=== PATIENT | female | born 1985 | race African-American/Black ===

== ENCOUNTER 2018-07-16 11:24 | Emergency (ER) | payer OTHER ==
[~2018-07-16] VITALS: Ht 165.1 cm; Wt 84.0 kg
[2018-07-16 12:00] VITALS: BP 158/92
== END 2018-07-16 12:42 | disposition home or self-care (01) ==
LOC: ER 11:24
DX: I10 Essential (primary) hypertension (principal); F31.9 Bipolar disorder, unspecified; J20.9 Acute bronchitis, unspecified; J45.909 Unspecified asthma, uncomplicated; F17.200 Nicotine dependence, unspecified, uncomplicated
CPT/HCPCS: 99283

== ENCOUNTER 2018-11-20 16:34 | Emergency (ER) | payer OTHER ==
[~2018-11-20] VITALS: Ht 165.1 cm; Wt 85.0 kg
[2018-11-20] MEDS ORDERED: SODIUM CHLORIDE 0.9% 1,000 ML IV ONE (21:52)
[2018-11-20] MEDS ORDERED: MORPHINE SULFATE 4 MG/ML CPJ (NOT FOR IM USE) IV STA (21:52)
[2018-11-20] MEDS ORDERED: ONDANSETRON HCL 4MG/2ML INJ IV STA (21:52)
[2018-11-20] MEDS ORDERED: LIDOCAINE 1%/EPI 1:100,000 10 ML VIAL IJ ONE (22:15)
[2018-11-20 22:44] LABS: BASOPHILS % 1.2 % (0.0-2.0); EOSINOPHILS % 2.2 % (0.0-5.0); HEMATOCRIT. 36.7 % (36.0-48.0); HEMOGLOBIN. 12.2 g/dL (12.0-16.0); LYMPHOCYTES % 28.9 % (20.0-50.0); MEAN CORPUSCULAR HEMOGLOBIN 29.9 pg (28.0-32.0); MEAN PLATELET VOLUME 8.7 fl (7.4-10.4); MONOCYTES % 4.9 % (2.0-8.0); NEUTROPHILS % 62.8 % (40.0-76.0); PLATELET 253 x1000/uL (130-400); RED BLOOD CELL COUNT 4.08 mill/uL (4.2-5.4); RED CELL DISTRIBUTION WIDTH 12.9 % (11.6-14.6)
[2018-11-20 22:46] LABS: CHLORIDE 109 mEq/L (98-107)
[2018-11-20 22:49] LABS: INR 1.1; PROTHROMBIN TIME 10.7 sec (9.1-11.1)
[2018-11-20] MEDS ORDERED: LIDOCAINE HCL/EPINEPHRINE 1%-EPI 1:100,000 20 ML VIAL IJ NR (23:06)
[2018-11-21] MEDS ORDERED: HYDROCODONE/ACETAMINOPHEN 5/325MG TABLET PO ONE (01:00)
[2018-11-21 01:06] VITALS: BP 180/99
[2018-11-21] MEDS ORDERED: CEFAZOLIN 1000MG PREMIX 50 ML IV ONE (01:15)
== END 2018-11-21 02:25 | disposition home or self-care (01) ==
LOC: ER 16:34
DX: S01.111A Laceration without foreign body of right eyelid and periocular area, initial encounter (principal); S09.8XXA Other specified injuries of head, initial encounter; I10 Essential (primary) hypertension; J45.909 Unspecified asthma, uncomplicated; F20.9 Schizophrenia, unspecified; Z59.0 Homelessness; W01.0XXA Fall on same level from slipping, tripping and stumbling without subsequent striking against object, initial encounter; Y93.89 Activity, other specified; Y92.89 Other specified places as the place of occurrence of the external cause
CPT/HCPCS: 12011; 36415; 80053; 85025; 85610; 96374; 96375; 99283; J2270; J2405; J3490; J7030; Z7610

== ENCOUNTER 2019-01-04 17:13 | Emergency (ER) | payer OTHER ==
[~2019-01-04] VITALS: Ht 167.6 cm; Wt 89.7 kg
[2019-01-04] MEDS ORDERED: IBUPROFEN 600MG TABLET PO ONE (18:45)
[2019-01-04] MEDS ORDERED: CLINDAMYCIN HCL 150MG CAPSULE PO SCH (19:30)
[2019-01-04 19:37] VITALS: BP 132/85
== END 2019-01-04 19:38 | disposition home or self-care (01) ==
LOC: ER 17:13
DX: K08.89 Other specified disorders of teeth and supporting structures (principal); Z48.02 Encounter for removal of sutures; J45.909 Unspecified asthma, uncomplicated; F31.9 Bipolar disorder, unspecified; F20.9 Schizophrenia, unspecified; F17.210 Nicotine dependence, cigarettes, uncomplicated
CPT/HCPCS: 99283

== ENCOUNTER 2021-07-25 10:04 | Emergency (ER) | payer OTHER ==
[~2021-07-25] VITALS: Ht 175.3 cm; Wt 100.0 kg
[2021-07-25 10:13] VITALS: BP 138/83
[2021-07-25] MEDS ORDERED: SODIUM CHLORIDE 0.9% 1,000 ML IV ONE (10:30)
[2021-07-25 10:52] LABS: BASOPHILS % 0.6 % (0.0-2.0); EOSINOPHILS % 0.4 % (0.0-5.0); HEMATOCRIT. 34.9 % (36.0-48.0); HEMOGLOBIN. 11.7 g/dL (12.0-16.0); LYMPHOCYTES % 10.9 % (20.0-50.0); MEAN CORPUSCULAR HEMOGLOBIN 30.8 pg (28.0-32.0); MEAN CORPUSCULAR VOLUME 91.6 fL (81.0-99.0); MEAN PLATELET VOLUME 8.1 fl (7.4-10.4); MONOCYTES % 7.7 % (2.0-8.0); NEUTROPHILS % 80.4 % (40.0-76.0); PLATELET 391 x1000/uL (130-400); RED BLOOD CELL COUNT 3.81 mill/uL (4.2-5.4)
[2021-07-25 10:59] LABS: CHLORIDE 99 mEq/L (98-107)
[2021-07-25 11:18] LABS: HCG SCREEN NEGATIVE
[2021-07-25 11:25] LABS: CLARITY URINE CLOUDY (CLEAR); COLOR URINE DARK YELLOW (YELLOW); KETONES URINE TRACE (NEGATIVE); LEUKOCYTE ESTERASE URINE 1+ (NEGATIVE); NITRITE URINE POSITIVE (NEGATIVE); OCCULT BLOOD URINE 3+ (NEGATIVE); PH URINE 5.5 (4.5-8.0); PROTEIN URINE 2+ (NEGATIVE); SPECIFIC GRAVITY URINE 1.029 (1.005-1.030)
[2021-07-25 12:12] LABS: *BARBITURATES SCREEN URINE NEGATIVE (NEGATIVE)
[2021-07-25 12:13] LABS: *BENZODIAZEPINES SCREEN URINE NEGATIVE (NEGATIVE); *COCAINE SCREEN URINE NEGATIVE (NEGATIVE); OPIATES URINE SCREEN NEGATIVE (NEGATIVE)
[2021-07-25 12:16] LABS: METHADONE URINE SCREEN NEGATIVE (NEGATIVE); PHENCYCLIDINE URINE SCREEN NEGATIVE (NEGATIVE)
[2021-07-25] MEDS ORDERED: CEFTRIAXONE 1 G PREMIX 50 ML IV ONE (12:45)
[2021-07-25 12:56] LABS: *AMPHETAMINES SCREEN URINE PRESUMTIVE POSITIVE (NEGATIVE)
[2021-07-25 12:57] LABS: CANNABINOID URINE SCREEN PRESUMTIVE POSITIVE (NEGATIVE)
[2021-07-25] MEDS ORDERED: CEPH250C2 MT (14:26)
== END 2021-07-25 15:22 | disposition home or self-care (01) ==
LOC: ER 10:13
DX: J06.9 Acute upper respiratory infection, unspecified (principal); Z20.822 Contact with and (suspected) exposure to COVID-19; N39.0 Urinary tract infection, site not specified; J45.909 Unspecified asthma, uncomplicated
CPT/HCPCS: 36415; 71045; 80053; 80305; 81003; 81025; 83605; 84145; 84703; 85025; 87426; 96361; 96365; 99284; J0696; J7030

== ENCOUNTER 2023-11-21 10:05 | Emergency (ER) | payer MEDICAID, OTHER ==
[~2023-11-21] VITALS: Ht 165.1 cm; Wt 91.0 kg
[~2023-11-21 10:05] MED LIST: CEPH250C2 MT
[2023-11-21 10:15] VITALS: BP 173/102; PULSE 100; RESP 18; O2SAT 100
[2023-11-21 11:05] LABS: EOSINOPHILS % 1.2 % (0.0-5.0); HEMATOCRIT. 42.9 % (36.0-48.0); HEMOGLOBIN. 13.6 g/dL (12.0-16.0); LYMPHOCYTES % 21.4 % (20.0-50.0); MEAN CORPUSCULAR HEMOGLOBIN 29.9 pg (28.0-32.0); MEAN CORPUSCULAR HGB CONC 31.8 g/dL (31.0-37.0); MEAN CORPUSCULAR VOLUME 94.3 fL (81.0-99.0); MEAN PLATELET VOLUME 9.5 fl (7.4-10.4); MONOCYTES % 6.4 % (2.0-8.0); PLATELET 263 x1000/uL (130-400); RED BLOOD CELL COUNT 4.55 mill/uL (4.2-5.4); RED CELL DISTRIBUTION WIDTH 13.9 % (11.6-14.6); WHITE BLOOD COUNT 9.1 x1000/uL (4.5-11.0)
[2023-11-21 11:26] LABS: ALANINE AMINOTRANSFERASE 22 IU/L (10-49); ALBUMIN 4.9 g/dL (3.2-4.8); ASPARTATE AMINOTRANSFERASE 28 IU/L (<34); BILIRUBIN TOTAL 0.9 mg/dL (0.1-1.0); CALCIUM 9.4 mg/dL (8.7-10.4); CARBON DIOXIDE 24 mEq/L (21-32); CHLORIDE 107 mEq/L (98-107); GLUCOSE 112 mg/dL (70-105); POTASSIUM 4.4 mEq/L (3.5-5.1); PROTEIN TOTAL 8.5 g/dL (6.0-8.3); SODIUM 138 mEq/L (136-145); UREA NITROGEN BLOOD 11 mg/dL (9-23)
[2023-11-21 12:04] LABS: HCG SCREEN NEGATIVE
[2023-11-21 16:15] VITALS: TEMP 98.3
[2023-11-21] MEDS: ACETAMINOPHEN 325MG TABLET PO ONE (16:15)
== END 2023-11-21 16:43 | disposition home or self-care (01) ==
LOC: ER 10:05
DX: K80.20 Calculus of gallbladder without cholecystitis without obstruction (principal); I10 Essential (primary) hypertension; J45.909 Unspecified asthma, uncomplicated; Z86.59 Personal history of other mental and behavioral disorders
CPT/HCPCS: 36415; 76705; 80053; 84703; 85025; 99284

== ENCOUNTER 2025-08-04 18:50 | Inpatient (IN) | payer MEDICAID, OTHER ==
[~2025-08-04] VITALS: Ht 160 cm; Wt 106.6 kg
[2025-08-04] MEDS: KETOROLAC 15MG/ML VIAL IV ONE (19:31)
[2025-08-04] MEDS: ACETAMINOPHEN 325MG TABLET PO ONE (19:41)
[2025-08-04 20:07] LABS: BASOPHILS % 0.4 % (0.0-2.0); EOSINOPHILS % 0.3 % (0.0-5.0); HEMATOCRIT. 41.9 % (36.0-48.0); HEMOGLOBIN. 13.5 g/dL (12.0-16.0); LYMPHOCYTES % 4.6 % (20.0-50.0); MEAN PLATELET VOLUME 8.7 fl (7.4-10.4); MONOCYTES % 6.0 % (2.0-8.0); NEUTROPHILS % 88.7 % (40.0-76.0); PLATELET 328 x1000/uL (130-400); RED BLOOD CELL COUNT 4.59 mill/uL (4.2-5.4); RED CELL DISTRIBUTION WIDTH 13.8 % (11.6-14.6)
[2025-08-04 20:26] LABS: CREATININE 0.9 mg/dL (0.6-1.0); UREA NITROGEN BLOOD 9 mg/dL (9-23)
[2025-08-04 20:28] LABS: ASPARTATE AMINOTRANSFERASE 28 IU/L (<34); BILIRUBIN DIRECT 0.5 mg/dL (<=3.0); BILIRUBIN TOTAL 1.1 mg/dL (0.1-1.0); PROTEIN TOTAL 7.4 g/dL (6.0-8.3)
[2025-08-04] MEDS: IPRATROPIUM BROMIDE (0.02%) 0.5MG/2.5ML NEB HHN ONE (20:45)
[2025-08-04] MEDS: ALBUTEROL (0.083%) 2.5MG/3ML NEB HHN ONE (20:45)
[2025-08-04] MEDS ORDERED: ALBUTEROL (0.083%) 2.5MG/3ML NEB ONE (20:47)
[2025-08-04] MEDS ORDERED: IPRATROPIUM BROMIDE (0.02%) 0.5MG/2.5ML NEB ONE (20:47)
[2025-08-04 20:50] VITALS: PULSE 119; RESP 24; O2SAT 94
[2025-08-04 21:09] LABS: INFLUENZA TYPE A Presumptive Negative (Pres. Neg.); INFLUENZA TYPE B Presumptive Negative (Pres. Neg.)
[2025-08-04 21:10] LABS: RESPIRATORY SYNCYTIAL VIRUS Not Detected (Not Detectd)
[2025-08-04 21:34] LABS: TROPONIN I HIGH SENSITIVITY 75 ng/L (3.0-34)
[2025-08-04 22:54] LABS: TROPONIN I HIGH SENSITIVITY 76 ng/L (3.0-34)
[2025-08-04] MEDS: FUROSEMIDE 40MG/4ML VIAL IVP ONE (23:08)
[2025-08-04] MEDS: ASPIRIN 81MG TABLET PO ONE (23:09)
[2025-08-05 00:52] VITALS: BP 181/117; PULSE 122; RESP 25; TEMP 37.1408
[2025-08-05] MEDS ORDERED: AMLODIPINE 10MG TABLET PO NR (02:15)
[2025-08-05] MEDS: METOPROLOL TARTRATE 50MG TABLET PO SCH (02:23)
[2025-08-05] MEDS: ASPIRIN 81MG TABLET PO SCH (02:24)
[2025-08-05] MEDS: ACETAMINOPHEN 325MG TABLET PO PRN (06:38)
[2025-08-05 08:00] VITALS: BP 140/101; PULSE 112; RESP 22; TEMP 36.6; O2SAT 98
[2025-08-05] MEDS: LOSARTAN 50 MG TABLET PO SCH (09:39)
[2025-08-05] MEDS: FUROSEMIDE 40MG/4ML VIAL IVP SCH (09:40)
[2025-08-05] MEDS: ENOXAPARIN 80MG/0.8ML SYR SUBCUT SCH (10:56)
[2025-08-05 10:59] LABS: HEMATOCRIT. 45.9 % (36.0-48.0); HEMOGLOBIN. 15.0 g/dL (12.0-16.0); MEAN PLATELET VOLUME 8.9 fl (7.4-10.4); PLATELET 289 x1000/uL (130-400); RED BLOOD CELL COUNT 5.02 mill/uL (4.2-5.4); RED CELL DISTRIBUTION WIDTH 13.9 % (11.6-14.6)
[2025-08-05 11:24] LABS: CREATININE 1.1 mg/dL (0.6-1.0); UREA NITROGEN BLOOD 9 mg/dL (9-23)
[2025-08-05 11:29] LABS: TROPONIN I HIGH SENSITIVITY 94 ng/L (3.0-34)
[2025-08-05] MEDS ORDERED: REGADENOSON 0.4 MG/5 ML IV SCH (11:45)
[2025-08-05 12:00] VITALS: BP 152/91; PULSE 110; RESP 20; TEMP 36.3
[2025-08-05 12:20] LABS: CLARITY URINE CLEAR (CLEAR); COLOR URINE YELLOW (YELLOW); GLUCOSE URINE NEGATIVE (NEGATIVE); KETONES URINE NEGATIVE (NEGATIVE); LEUKOCYTE ESTERASE URINE NEGATIVE (NEGATIVE); NITRITE URINE NEGATIVE (NEGATIVE); OCCULT BLOOD URINE 1+ (NEGATIVE); PH URINE 6.5 (4.5-8.0); PROTEIN URINE 2+ (NEGATIVE); SPECIFIC GRAVITY URINE 1.006 (1.005-1.030); UROBILINOGEN URINE 1.0 E.U./dL (0.2-1.0)
[2025-08-05 12:39] LABS: *AMPHETAMINES SCREEN URINE PRESUMPTIVE POSITIVE (NEGATIVE); *BARBITURATES SCREEN URINE NEGATIVE (NEGATIVE); *BENZODIAZEPINES SCREEN URINE NEGATIVE (NEGATIVE); *COCAINE SCREEN URINE NEGATIVE (NEGATIVE); CANNABINOID URINE SCREEN NEGATIVE (NEGATIVE); ECSTASY MDMA SCREEN URINE NEGATIVE (NEGATIVE); METHADONE URINE SCREEN NEGATIVE (NEGATIVE); OPIATES URINE SCREEN NEGATIVE (NEGATIVE); PHENCYCLIDINE URINE SCREEN NEGATIVE (NEGATIVE)
[2025-08-05 12:51] LABS: INR 1.7
[2025-08-05 13:06] LABS: SQUAMOUS EPITHELIAL CELL URINE 2+ /lpf (RARE/1+)
[2025-08-05 13:07] LABS: BACTERIA URINE 1+; RBC URINE 0-2 /hpf (0-2); WBC URINE NONE SEEN /hpf (0-2)
[2025-08-05 16:00] VITALS: PULSE 105; RESP 26; TEMP 36.5; O2SAT 96
[2025-08-05 18:15] LABS: LYMPHOCYTES % MANUAL 8.0 % (20.0-60.0); MONOCYTES % MANUAL 7.0 % (2.0-8.0); NEUTROPHILS % MANUAL 85.0 % (45.0-75.0); PLATELET ESTIMATE NORMAL
[2025-08-05 20:00] VITALS: BP 120/88; PULSE 105; RESP 25; TEMP 37; O2SAT 99
[2025-08-05] MEDS: CEFTRIAXONE 1GM/50ML 50 ML IV SCH (20:20)
[2025-08-05] MEDS ORDERED: ENOXAPARIN 80MG/0.8ML SYR SUBCUT SCH (22:00)
[2025-08-06] VITALS: BP 112/81; PULSE 84; RESP 27; TEMP 36.8
[2025-08-06 08:00] VITALS: BP 102/86; PULSE 100; RESP 24; TEMP 36.4; O2SAT 94
[2025-08-06 08:17] LABS: CREATININE 1.0 mg/dL (0.6-1.0); UREA NITROGEN BLOOD 12 mg/dL (9-23)
[2025-08-06] MEDS ORDERED: NALOXONE HCL 0.4MG/ML VIAL IV PRN (10:00)
[2025-08-06 10:03] LABS: BASOPHILS % 0.3 % (0.0-2.0); EOSINOPHILS % 0.3 % (0.0-5.0); HEMATOCRIT. 54.5 % (36.0-48.0); HEMOGLOBIN. 16.7 g/dL (12.0-16.0); LYMPHOCYTES % 8.6 % (20.0-50.0); MEAN PLATELET VOLUME 8.7 fl (7.4-10.4); MONOCYTES % 5.6 % (2.0-8.0); NEUTROPHILS % 85.2 % (40.0-76.0); PLATELET 270 x1000/uL (130-400); RED BLOOD CELL COUNT 6.02 mill/uL (4.2-5.4); RED CELL DISTRIBUTION WIDTH 14.3 % (11.6-14.6)
[2025-08-06] MEDS: POTASSIUM CHLORIDE 20MEQ TABLET SR PO NR (11:39)
[2025-08-06 12:00] VITALS: BP 107/74; PULSE 81; RESP 19; TEMP 36.3; O2SAT 95
[2025-08-06 16:00] VITALS: PULSE 101; RESP 20; TEMP 36.6; O2SAT 95
[2025-08-06 20:00] VITALS: BP 133/91; PULSE 98; RESP 19; O2SAT 94
[2025-08-06] MEDS: FUROSEMIDE 40MG TABLET PO SCH (21:15)
[2025-08-07 08:00] VITALS: TEMP 36.1
[2025-08-07] MEDS: HYDROCODONE/ACETAMINOPHEN 5/325MG TABLET PO PRN (08:55)
[2025-08-07] MEDS: SPIRONOLACTONE 25MG TABLET PO SCH (09:30)
[2025-08-07] MEDS: LEVOFLOXACIN 500MG TABLET PO SCH (11:00)
[2025-08-07 12:00] VITALS: TEMP 36.4
[2025-08-07 16:00] VITALS: TEMP 36.6
[2025-08-07 17:19] LABS: BASOPHILS % 0.8 % (0.0-2.0); EOSINOPHILS % 1.6 % (0.0-5.0); HEMATOCRIT. 45.3 % (36.0-48.0); HEMOGLOBIN. 14.5 g/dL (12.0-16.0); LYMPHOCYTES % 15.9 % (20.0-50.0); MEAN PLATELET VOLUME 9.2 fl (7.4-10.4); MONOCYTES % 7.7 % (2.0-8.0); NEUTROPHILS % 74.0 % (40.0-76.0); PLATELET 341 x1000/uL (130-400); RED BLOOD CELL COUNT 4.99 mill/uL (4.2-5.4); RED CELL DISTRIBUTION WIDTH 13.7 % (11.6-14.6)
[2025-08-07 20:00] VITALS: PULSE 77; RESP 20; TEMP 36.5; O2SAT 97
[2025-08-08] VITALS: PULSE 93; RESP 20; TEMP 37; O2SAT 98
[2025-08-08 04:00] VITALS: PULSE 79; RESP 20; TEMP 37; O2SAT 98
== END 2025-08-08 10:15 | disposition left against medical advice (07) | DRG 720 ==
LOC: ER 18:50 → 3WST 21:37 → EDBEDREQTM 21:43 → EDBEDREQ 21:43 → ENRESERV 23:09
PROVIDERS: ADMIT Internal Medicine; ATTEND Internal Medicine
DX: A41.9 Sepsis, unspecified organism (principal); I50.23 Acute on chronic systolic (congestive) heart failure; I21.A1 Myocardial infarction type 2; I11.0 Hypertensive heart disease with heart failure; I16.0 Hypertensive urgency; F20.9 Schizophrenia, unspecified; J45.909 Unspecified asthma, uncomplicated; F15.90 Other stimulant use, unspecified, uncomplicated; F17.210 Nicotine dependence, cigarettes, uncomplicated; F31.9 Bipolar disorder, unspecified; I42.0 Dilated cardiomyopathy; Z53.29 Procedure and treatment not carried out because of patient's decision for other reasons
CPT/HCPCS: 36415; 71045; 80048; 80076; 80305; 81003; 83735; 84145; 84484; 85025; 87420; 87804; 93005; 93306; 94640; 96374; 96375; 99285; A4606; J0696; J1650; J1885; J1938

== ENCOUNTER 2025-08-22 08:03 | Emergency (ER) | payer MEDICAID, OTHER ==
[~2025-08-22] VITALS: Ht 170.2 cm; Wt 111.0 kg
[2025-08-22 08:07] VITALS: O2SAT 100
[2025-08-22] MEDS: MORPHINE SULFATE 4 MG/ML INJ (FOR IV/IM USE) IV ONE (08:15)
[2025-08-22] MEDS: ONDANSETRON HCL 4MG/2ML INJ IV ONE (08:15)
[2025-08-22 08:53] LABS: BASOPHILS % 0.4 % (0.0-2.0); EOSINOPHILS % 0.3 % (0.0-5.0); HEMATOCRIT. 44.1 % (36.0-48.0); HEMOGLOBIN. 13.5 g/dL (12.0-16.0); LYMPHOCYTES % 8.4 % (20.0-50.0); MEAN PLATELET VOLUME 8.9 fl (7.4-10.4); MONOCYTES % 6.1 % (2.0-8.0); NEUTROPHILS % 84.8 % (40.0-76.0); PLATELET 255 x1000/uL (130-400); RED BLOOD CELL COUNT 4.61 mill/uL (4.2-5.4); RED CELL DISTRIBUTION WIDTH 16.2 % (11.6-14.6)
[2025-08-22 09:06] LABS: CREATININE 1.1 mg/dL (0.6-1.0); ETHANOL BLOOD < 10 mg/dL (<10); INR 1.3; UREA NITROGEN BLOOD 13 mg/dL (9-23)
[2025-08-22 09:07] LABS: PROTEIN TOTAL 7.9 g/dL (6.0-8.3)
[2025-08-22 09:08] LABS: ASPARTATE AMINOTRANSFERASE 35 IU/L (<34); BILIRUBIN DIRECT 0.4 mg/dL (<=3.0); BILIRUBIN TOTAL 0.9 mg/dL (0.1-1.0)
[2025-08-22 09:10] LABS: HCG SCREEN NEGATIVE
[2025-08-22 09:42] LABS: TROPONIN I HIGH SENSITIVITY 58 ng/L (3.0-34)
[2025-08-22] MEDS: SODIUM CHLORIDE 0.9% 1,000 ML IV ONE (09:42)
[2025-08-22] MEDS: SODIUM CHLORIDE 0.9% (SEPSIS BOLUS) IV ONE (09:46)
[2025-08-22] MEDS: PIPERACILLIN/TAZO 3.375G/50ML 50 ML IV ONE (09:46)
[2025-08-22] MEDS: MAGNESIUM 2 G PREMIX 50 ML IV ONE (10:00)
[2025-08-22] MEDS ORDERED: IOHEXOL-300 100 ML BOTTLE ONE (11:03)
[2025-08-22 12:46] VITALS: PULSE 88; RESP 20; TEMP 36.7; O2SAT 95
[2025-08-22 14:15] VITALS: BP 195/132
[2025-08-23] MEDS ORDERED: ABIL10 MT (03:20)
== END 2025-08-22 13:59 | disposition home or self-care (01) ==
LOC: ER 08:03 → CANBEDREQ 13:25 → ER 13:59
DX: K80.70 Calculus of gallbladder and bile duct without cholecystitis without obstruction (principal); F15.90 Other stimulant use, unspecified, uncomplicated; J45.909 Unspecified asthma, uncomplicated; F31.9 Bipolar disorder, unspecified; F20.9 Schizophrenia, unspecified; I10 Essential (primary) hypertension; E78.5 Hyperlipidemia, unspecified
CPT/HCPCS: 80076; 80048; 80320; 84703; 83605; 83690; 83735; 85025; 85610; 87040; 84484; 36415; 74177; 76705; 93005; 96361; 96365; 96375; 99285; Q9967; J2405; J2543; J2270; J7030; Z7610 ×2; J3475; G0480